=== PATIENT | female | born 2000 | race Caucasian/White ===

== ENCOUNTER 2023-07-01 18:34 | Emergency (ER) | payer OTHER ==
[2023-07-01 18:43] VITALS: BP 132/94; PULSE 95; RESP 20; TEMP 98.4; BMI 26.4
[2023-07-01 21:48] LABS: BASO % 0.8 % (0-2.0); EOS % 0.2 % (0-4.5); HEMATOCRIT 38.4 % (32.4-45.2); HEMOGLOBIN 12.8 GM/dL (10.7-15.3); LYMPH % 15.7 % (8-40); MCHC 33.2 g/dl (32.0-36.0); MEAN CELL VOLUME 90.3 fl (80-96); MEAN PLT VOLUME 8.1 fl (7.5-11.1); MONO % 3.9 % (3.8-10.2); NEUT % 79.4 % (42.8-82.8); PLATELET COUNT 367 10^3/uL (134-434); RBC 4.25 M/mm3 (3.60-5.2); RDW 14.6 % (11.6-15.6); WHITE BLOOD COUNT 12.6 K/mm3 (4.0-10.0)
[2023-07-01 22:15] LABS: POTASSIUM 4.3 mmol/L (3.5-5.1)
[2023-07-01 22:17] LABS: CALCIUM 9.4 mg/dL (8.5-10.1)
[2023-07-01 22:18] LABS: ALBUMIN 4.1 g/dl (3.4-5.0); BLOOD UREA NITROGEN 12.8 mg/dL (7-18)
[2023-07-01 22:21] LABS: CREATININE 0.5 mg/dL (0.55-1.3)
[2023-07-01 22:22] LABS: BILIRUBIN,TOTAL 1.1 mg/dL (0.2-1); TOT PROT 8.2 g/dl (6.4-8.2)
== END 2023-07-02 03:58 | disposition home or self-care (01) ==
LOC: JER 18:34
DX: F41.0 Panic disorder [episodic paroxysmal anxiety] (principal); R07.9 Chest pain, unspecified; R06.02 Shortness of breath; R00.2 Palpitations
CPT/HCPCS: 36415; 71275-TC; 80053; 84439; 84443; 84484; 84703; 85025; 85379; 93005; 93010; 99285-25; Q9967